=== PATIENT | female | born 1955 | race Caucasian/White ===

== ENCOUNTER 2019-02-07 00:59 | Emergency (ER) | payer BC ==
[~2019-02-07] VITALS: Ht 175.3 cm; Wt 119.6 kg
[~2019-02-07 00:59] MED LIST: ALBU8.5H5 INH; DILT120C88 PO; LEVO75TA PO; MONT10TA6 PO; RIVA20TA PO
[2019-02-07] MEDS ORDERED: SODIUM CHLORIDE FLUSH 10ML SYR IVF ONE (01:30)
[2019-02-07 01:42] LABS: BASOPHILS # (AUTO) 0.03 x10^3/uL (0-0.1); BASOPHILS % (AUTO) 1 % (0-1); EOSINOPHILS # (AUTO) 0.14 x10^3/uL (0-0.4); EOSINOPHILS % (AUTO) 2 % (1-7); LYMPHOCYTES # (AUTO) 2.03 x10^3/uL (1-3.4); LYMPHOCYTES % (AUTO) 33 % (22-44); MD NO; MEAN CORPUSCULAR HEMOGLOBIN 31.7 pg (27.0-34.8); MEAN CORPUSCULAR HGB CONC 33.2 g/dL (32.4-35.8); MEAN CORPUSCULAR VOLUME 95.5 fL (80-100); MEAN PLATELET VOLUME 8.3 fL (7.4-10.4); MONOCYTES # (AUTO) 0.58 x10^3/uL (0.2-0.8); MONOCYTES % (AUTO) 10 % (2-9); NEUTROPHILS # (AUTO) 3.31 x10^3/uL (1.8-6.8); NEUTROPHILS % (AUTO) 54 % (42-75); PLATELET COUNT 232 x10^3/uL (130-400); RED BLOOD COUNT 4.12 x10^6/uL (3.82-5.3); RED CELL DISTRIBUTION WIDTH 13.8 % (9.6-15.2)
[2019-02-07 01:53] LABS: INTERNATIONAL NORMALIZED RATIO 1.02 (0.93-1.1); PROTHROMBIN TIME 10.7 Seconds (9.6-11.5)
[2019-02-07 01:54] LABS: ALANINE AMINOTRANSFERASE 16 U/L (12-78); ALBUMIN 3.5 g/dL (3.4-5.0); ANION GAP 6 mmol/L (5-15); CALCIUM 8.7 mg/dL (8.5-10.1); CHLORIDE 106 mmol/L (98-107); CREATININE 1.09 mg/dL (0.55-1.02)
[2019-02-07] MEDS ORDERED: ELAQUIS PO (01:56)
[2019-02-07] MEDS ORDERED: FLEC50TA25 PO (01:56)
[2019-02-07] MEDS ORDERED: CHOL200052 PO (01:57)
[2019-02-07] MEDS ORDERED: ASCO500T8 PO (01:57)
[2019-02-07 01:58] LABS: ALKALINE PHOSPHATASE 85 U/L (45-117); BILIRUBIN,TOTAL 0.4 mg/dL (0.2-1.0); TOTAL PROTEIN 7.2 g/dL (6.4-8.2); TROPONIN I < 0.015 ng/mL (0.000-0.045)
[2019-02-07] MEDS ORDERED: PROPOFOL 10 MG/ML, 20ML IVPush ONE (02:00)
--- NOTE | 2019-02-07 02:14 | NUR ---
Pt conscious sedation to be admin for cardioversion for afib w/ rvr. Procedure consent signed and md talked to pt about risks and benefits of procedure. Adult bvm attached to oxygen. Capnography applied to pt for safety. Code cart next to bed. Awaiting md for sedation.
[2019-02-07] MEDS ORDERED: PROPOFOL 10 MG/ML, 20ML ONE (02:16)
--- NOTE | 2019-02-07 02:39 | NUR ---
Procedure initiated at 0230. 60 mg propofol admin iv by . and successful cardioverison shock admin at 0232. Pt maintained airway and o2 sat on ra through procedure. Pt fully recovered to baseline from procedure by 0240. Wctm per md order.
--- NOTE | 2019-02-07 03:18 | NUR ---
Pt report to ela wolff.
[2019-02-07 04:03] VITALS: BP 116/74
== END 2019-02-07 04:05 | disposition home or self-care (01) ==
LOC: ED 03:20
DX: I48.2 Chronic atrial fibrillation (principal); R55 Syncope and collapse
CPT/HCPCS: 36415; 71045; 80053; 84484; 85025; 85610; 85730; 92960; 93005